=== PATIENT | male | born 2000 | race Caucasian/White ===

== ENCOUNTER 2025-01-19 06:19 | Outpatient (CLI) | payer BC, OTHER ==
[2025-01-19] MEDS ORDERED: LIDOcaine 1%/PF 5ML 10 MG/ML VIAL ONE (06:33)
[2025-01-19] MEDS ORDERED: LIDOcaine 1% 30ml preserv. free vial ONE (06:33)
[2025-01-19] MEDS ORDERED: GADOTERATE MEGLUMINE 7.5 MMOL/15 ML VIAL IV ONE (06:33)
[2025-01-19] MEDS ORDERED: iohexol 300 MG/1 ML 50ml polymer ONE (06:33)
--- NOTE | 2025-01-19 09:00 | RADIOLOGY REPORT ---
ANGIO ARTHROGRAM (A) Date: 01/19/2025 07:19 AM Clinical History: PAIN IN RIGHT SHOULDER Comparison: None Procedure: Verbal and written informed consent were obtained from the patient for the procedure of RIGHT SHOULDER JOINT fluoroscopically guided arthrogram, after the procedure, risks, and benefits of the procedure were explained to the patient. Risks include bleeding, infection, reaction to injected medications, and damage to surrounding anatomic structures. The patient's questions were answered. The patient's most recent medical history was reviewed. A time out was performed to verify the patient's name, date of , and correct location of the procedure, prior to initiation of the procedure. The patient was placed supine on the fluoroscopic table and the area overlying the RIGHT SHOULDER JOINT was prepped and draped in the usual sterile fashion. The patient tolerated the procedure well. There were no immediate complications. Home-care instructions were reviewed with the patient prior to the patient's discharge from the fluoroscopy suite. The patient verbally affirmed understanding of these instructions. Impression: Technically successful fluoroscopically guided RIGHT SHOULDER JOINT arthrogram. The patient was transported to MRI for further imaging at the completion of the procedure. Porcedure by Dr. Berkowitz.
--- NOTE | 2025-01-19 11:57 | RADIOLOGY REPORT ---
CLINICAL INDICATION: PAIN IN RIGHT SHOULDER COMPARISON: None TECHNIQUE: Multiplanar, multisequence MRI of the right shoulder was performed with intra-articular contrast. Please see separate procedure report. Contrast: None FINDINGS: Glenohumeral joint: There is good intra-articular distention of the glenohumeral joint. There is a cortical deformity of the anterior medial humeral head consistent with a reverse hill-Sachs fracture. There is moderate bone marrow edema in the humeral head.. Alignment is maintained. No focal articular cartilage defect. There is no joint effusion or synovitis. Acromioclavicular joint: The acromioclavicular joint is normal in appearance. The acromion is not downsloping. Rotator cuff and bursae: The supraspinatus, infraspinatus, subscapularis and teres minor tendons are intact. There is no regional muscle atrophy. Trace fluid in the subacromial subdeltoid bursa. Biceps tendon and glenoid labrum: The long head biceps tendon is located within the bicipital groove and intact. There is a tear of the anterior superior to posterior superior labrum. The anterior inferior labrum is also torn. Posterior inferior labrum also torn. IMPRESSION: 1. Acute anterior medial fracture of the humeral head (reverse hill-Sachs fracture. Glenohumeral alignment is within normal limits. 2. Tear of the anterior superior to posterior superior, anterior inferior and posterior inferior glenoid labrum. 3. No rotator cuff tear. 4. Trace subacromial subdeltoid bursal fluid.
== END 2025-01-19 23:59 | disposition home or self-care (01) ==
LOC: RAD 06:19
PROVIDERS: ATTEND Family Medicine Sports Medicine
DX: S42.201A Unspecified fracture of upper end of right humerus, initial encounter for closed fracture (principal); S43.431A Superior glenoid labrum lesion of right shoulder, initial encounter; M25.511 Pain in right shoulder; X58.XXXA Exposure to other specified factors, initial encounter; Y93.89 Activity, other specified; Y92.89 Other specified places as the place of occurrence of the external cause; Y99.8 Other external cause status
CPT/HCPCS: 23350; 73222; 77002; A9575; J2003; J3490; Q9967